=== PATIENT | female | born 1990 | race Two or more races ===

== ENCOUNTER 2018-08-26 17:20 | Emergency (ER) | payer OTHER ==
[~2018-08-26] VITALS: Ht 154.9 cm; Wt 68.0 kg
--- NOTE | 2018-08-26 17:53 | NUR ---
AAOX3, CAME TO ER C/O VAGINAL BLEEDING FOR 2 DAYS, ABOUT 3 PADS/DAY, BRIGHT RED IN COLOR PER PATIENT REPORT. ALSO C/O ABDOMINAL CRAMPS. RR IS EVEN AND UNLABORED WITH NAD NOTED. AWAITING MD FOR EVAL.
[2018-08-26] MEDS ORDERED: ACETAMINOPHEN 650 MG/20.3 ML UDC PO ONE (18:30)
[2018-08-26] MEDS ORDERED: ACETAMINOPHEN 325 MG TABLET ONE (18:42)
[2018-08-26 18:51] LABS: APPEARANCE,URINE Clear (CLEAR); BILIRUBIN,URINE Negative (NEGATIVE); BLOOD, URINE Large Ery/uL (NEGATIVE); COLOR,URINE Dark (YELLOW); KETONES,URINE Negative (NEGATIVE); LEUKOCYTE ESTERASE ,URINE Negative (NEGATIVE); NITRITE, URINE Negative (NEGATIVE); PH,URINE 5.5 (5.0-8.0); PROTEIN,URINE Trace mg/dl (NEGATIVE); UGLUCOSE Negative (NEGATIVE); UROBILINOGEN,URINE 0.2 EU/dL (0.2)
[2018-08-26 19:10] LABS: BASOPHILS # (AUTO) 0.1 /CMM (0.0-0.2); BASOPHILS % (AUTO) 1.1 % (0.0-2.0); EOSINOPHILS % (AUTO) 1.8 % (0.0-6.0); HEMATOCRIT 41 % (33-45); HEMOGLOBIN 14.3 g/dL (11.5-14.8); LYMPHOCYTES # (AUTO) 2.2 /CMM (0.8-4.8); LYMPHOCYTES % (AUTO) 26.6 % (20.0-44.0); MEAN CORPUSCULAR HGB CONC 35 g/dl (31.0-36.0); MEAN CORPUSCULAR VOLUME 90 fL (82-100); MONOCYTES # (AUTO) 0.3 /CMM (0.1-1.30); MONOCYTES % (AUTO) 3.4 % (2.0-12.0); NEUTROPHILS # (AUTO) 5.7 /CMM (1.8-8.9); NEUTROPHILS % (AUTO) 67.1 % (43.0-81.0); PLATELET COUNT (AUTO) 336 /CMM (150-450); RED BLOOD CELL COUNT(AUTO) 4.51 MIL/uL (4.0-5.2); WHITE BLOOD COUNT (AUTO) 8.5 K/uL (4.3-11.0)
[2018-08-26 19:14] LABS: RBC,URINE 21-50 /HPF (0-2)
[2018-08-26 19:15] LABS: BACTERIA,URINE Few /HPF (None Seen); MUCUS,URINE Many /LPF (None Seen); SQUAMOUS EPITHELIAL CELL,UR Few /HPF (None Seen); URINE AMORPHOUS URATE Moderate /HPF (None Seen)
[2018-08-26 20:33] VITALS: BP 124/89
--- NOTE | 2018-08-26 20:33 | NUR ---
Patient discharged to home in stable condition. Written and verbal after care instructions given. Patient verbalizes understanding of instruction. Pt ambulatory with a steady gait
== END 2018-08-26 20:34 | disposition home or self-care (01) ==
LOC: ER 17:25
DX: N93.9 Abnormal uterine and vaginal bleeding, unspecified (principal); Z98.890 Other specified postprocedural states
CPT/HCPCS: 36415; 76856-TC; 81000-TC; 84703-TC; 85025-TC